=== PATIENT | female | born 1970 | race African-American/Black ===

== ENCOUNTER 2019-01-22 16:34 | Emergency (ER) | payer OTHER ==
--- NOTE | 2019-01-22 17:47 | ER ---
Nurse's Notes [facility] Name: Hollie Chen Age: 48 yrs Sex: Female : 1970 Arrival Date: 01/22/2019 Time: 16:38 Bed 19 Private MD: Diagnosis: Pain in thoracic spine-resolved Presentation: 01/22 16:48 Presenting complaint: Patient states: my last pt of the day and i was getting him over tw2 to the bed and i twisted and it pulled something in my back, RIGHT mid back, it is fading a way. Transition of care: patient was not received from another setting of care. Onset of symptoms was January 22, 2019. Risk Assessment: Do you want to hurt yourself or someone else? Patient reports no desire to harm self or others. Initial Sepsis Screen: Does the patient meet any 2 criteria? No. Patient's initial sepsis screen is negative. Does the patient have a suspected source of infection? No. Patient's initial sepsis screen is negative. Care prior to arrival: None. 16:48 Method Of Arrival: Ambulatory tw2 16:48 Acuity: DIONNA 4 tw2 Triage Assessment: 16:50 General: Appears in no apparent distress. Behavior is calm, cooperative, appropriate tw2 for age. Pain: Complains of pain in right mid back and right low back. Musculoskeletal: Range of motion: intact in all extremities. 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 - Social history:: Smoking status: . - Ebola Screening: : Patient denies travel to an Ebola-affected area in the 21 days before illness onset. Screenin:04 Abuse screen: Denies threats or abuse. Denies injuries from another. Nutritional hj screening: No deficits noted. Tuberculosis screening: No symptoms or risk factors identified. Fall Risk None identified. Assessment: 17:03 General: Appears in no apparent distress. uncomfortable, Behavior is calm, cooperative, hj appropriate for age. Pain: Complains of pain in right low back and right mid back. Neuro: Level of Consciousness is awake, alert, obeys commands, Oriented to person, place, time, situation, Appropriate for age. Cardiovascular: Capillary refill < 3 seconds Patient's skin is warm and dry. Respiratory: Airway is patent Respiratory effort is even, unlabored, Respiratory pattern is regular, symmetrical. GI: No signs and/or symptoms were reported involving the gastrointestinal system. : No signs and/or symptoms were reported regarding the genitourinary system. EENT: No signs and/or symptoms were reported regarding the EENT system. Derm: No signs and/or symptoms reported regarding the dermatologic system. Musculoskeletal: Reports pain in right low back and right mid back. 17:52 Reassessment: D/C instructions given;. hj Vital Signs: 16:50 BP 124 / 71; Pulse 81; Resp 17; Temp 97.4(TE); Pulse Ox 100% on R/A; Weight 86.18 kg tw2 (R); Height 5 ft. 10 in. (177.80 cm); Pain 0/10; 17:51 BP 122 / 70; Pulse 80; Resp 18; Pulse Ox 100% on R/A; hj 16:50 Body Mass Index 27.26 (86.18 kg, 177.80 cm) tw2 ED Course: 16:38 Patient arrived in ED. mr 16:49 Triage completed. tw2 16:50 Arm band placed on. tw2 16:54 Wesley Weinstein, RN is Primary Nurse. hj 17:04 Patient has correct armband on for positive identification. Bed in low position. Call hj light in reach. Side rails up X 1. Adult w/ patient. 17:25 [facility] kb 17:25 Roberth Singh MD is Attending Physician. kb 17:51 No provider procedures requiring assistance completed. Patient did not have IV access hj during this emergency room visit. Administered Medications: No medications were administered Outcome: 17:47 Discharge ordered by . kb 17:51 Discharged to home ambulatory. hj 17:51 Condition: stable 17:51 Discharge instructions given to patient, Instructed on discharge instructions, follow up and referral plans. medication usage, Demonstrated understanding of instructions, follow-up care, medications, Prescriptions given X 2. 17:52 Patient left the ED. Signatures: Nicole Alvarenga FNP-C FNP-Ckb Rivera, Mary mr Weinstein, Wesley, RN RN hj CabralTami, RN RN tw2
--- NOTE | 2019-01-22 17:48 | EDPHYS ---
Physician Documentation [facility] Name: Hollie Chen Age: 48 yrs Sex: Female : 1970 Arrival Date: 01/22/2019 Time: 16:38 Bed 19 Private MD: ED Physician Roberth Singh HPI: 01/22 21:01 This 48 yrs old Black Female presents to ER via Ambulatory with complaints of Back Pain.kb 21:01 The patient presents with pain that is acute. The symptoms are located in the lumbar kb area and right mid back. Onset: The symptoms/episode began/occurred just prior to arrival. The pain does not radiate. Associated signs and symptoms: The patient has no apparent associated signs or symptoms. The problem was sustained when lifting from twisting. Modifying factors: The patient symptoms are alleviated by nothing, the patient symptoms are aggravated by nothing. Severity of symptoms: At their worst the symptoms were mild, moderate, in the emergency department the symptoms have resolved. The patient has not experienced similar symptoms in the past. The patient has not recently seen a physician. Pt reports she was lifting a pt, twisted and felt like she pinched something in her back. States she sat down and rested afterwards and the pain subsided. Denies any pain at this time. . 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 - Social history:: Smoking status: . - Ebola Screening: : Patient denies travel to an Ebola-affected area in the 21 days before illness onset. ROS: 20:25 Constitutional: Negative for fever, chills, and weight loss, Cardiovascular: Negative kb for chest pain, palpitations, and edema, Respiratory: Negative for shortness of breath, cough, wheezing, and pleuritic chest pain, Abdomen/GI: Negative for abdominal pain, nausea, vomiting, diarrhea, and constipation, : Negative for injury, bleeding, discharge, and swelling, MS/Extremity: Negative for injury and deformity, Skin: Negative for injury, rash, and discoloration, Neuro: Negative for headache, weakness, numbness, tingling, and seizure. 20:25 Back: Positive for pain at rest, pain with movement, of the lumbar area. Exam: 21:00 Constitutional: This is a well developed, well nourished patient who is awake, alert, kb and in no acute distress. Head/Face: Normocephalic, atraumatic. ENT: Nares patent. No nasal discharge, no septal abnormalities noted. Tympanic membranes are normal and external auditory canals are clear. Oropharynx with no redness, swelling, or masses, exudates, or evidence of obstruction, uvula midline. Mucous membranes moist. Neck: Trachea midline, no thyromegaly or masses palpated, and no cervical lymphadenopathy. Supple, full range of motion without nuchal rigidity, or vertebral point tenderness. No Meningismus. Chest/axilla: Normal chest wall appearance and motion. Nontender with no deformity. No lesions are appreciated. Cardiovascular: Regular rate and rhythm with a normal S1 and S2. No gallops, murmurs, or rubs. Normal PMI, no JVD. No pulse deficits. Respiratory: Lungs have equal breath sounds bilaterally, clear to auscultation and percussion. No rales, rhonchi or wheezes noted. No increased work of breathing, no retractions or nasal flaring. Abdomen/GI: Soft, non-tender, with normal bowel sounds. No distension or tympany. No guarding or rebound. No evidence of tenderness throughout. Back: No spinal tenderness. No costovertebral tenderness. Full range of motion. Skin: Warm, dry with normal turgor. Normal color with no rashes, no lesions, and no evidence of cellulitis. MS/ Extremity: Pulses equal, no cyanosis. Neurovascular intact. Full, normal range of motion. Neuro: Awake and alert, GCS 15, oriented to person, place, time, and situation. Cranial nerves II-XII grossly intact. Motor strength 5/5 in all extremities. Sensory grossly intact. Cerebellar exam normal. Normal gait. 21:03 Neuro: Exam negative for kb Vital Signs: 16:50 BP 124 / 71; Pulse 81; Resp 17; Temp 97.4(TE); Pulse Ox 100% on R/A; Weight 86.18 kg tw2 (R); Height 5 ft. 10 in. (177.80 cm); Pain 0/10; 17:51 BP 122 / 70; Pulse 80; Resp 18; Pulse Ox 100% on R/A; hj 16:50 Body Mass Index 27.26 (86.18 kg, 177.80 cm) tw2 MDM: 17:26 Patient medically screened. kb 17:49 Data reviewed: vital signs, nurses notes. Data interpreted: Pulse oximetry: on room air kb is 100 %. Interpretation: normal. Counseling: I had a detailed discussion with the patient and/or guardian regarding: the historical points, exam findings, and any diagnostic results supporting the discharge/admit diagnosis, the need for outpatient follow up, a family practitioner, to return to the emergency department if symptoms worsen or persist or if there are any questions or concerns that arise at home. Administered Medications: No medications were administered Disposition: 01/23 07:47 Co-signature as Attending Physician, Roberth Singh MD I agree with the assessment and robert plan of care. Disposition: 01/22/19 17:47 Discharged to Home. Impression: Pain in thoracic spine - resolved. - Condition is Stable. - Discharge Instructions: Back Pain, Adult, [id number]. - Prescriptions for Cyclobenzaprine 10 mg Oral Tablet - take 1 tablet by ORAL route every 8 hours As needed; 21 tablet. Diclofenac Sodium 75 mg Oral Tablet, Delayed Release (E.C.) - take 1 tablet by ORAL route 2 times per day As needed; 30 tablet. - Medication Reconciliation Form, Thank You Letter, Antibiotic Education, Prescription Opioid Use, Work release form form. - Follow up: Emergency Department; When: As needed; Reason: Worsening of condition. Follow up: Private Physician; When: 2 - 3 days; Reason: Recheck today's complaints, Continuance of care, Re-evaluation by your physician. Signatures: Nicole Alvarenga, SULAIMAN-C SULAIMAN-Roberth Plata MD MD cha Joaquin, Henry, RN RN hj Wise, Tara, RN RN tw2 Corrections: (The following items were deleted from the chart) 01/22 17:52 17:47 01/22/2019 17:47 Discharged to Home. Impression: Pain in thoracic spine - hj resolved. Condition is Stable. Forms are Work release form, Medication Reconciliation Form, Thank You Letter, Antibiotic Education, Prescription Opioid Use. Follow up: Emergency Department; When: As needed; Reason: Worsening of condition. Follow up: Private Physician; When: 2 - 3 days; Reason: Recheck today's complaints, Continuance of care, Re-evaluation by your physician. kb
== END 2019-01-22 17:52 | disposition home or self-care (01) ==
LOC: ER 16:34
DX: M54.5 Low back pain (principal); Z88.0 Allergy status to penicillin
CPT/HCPCS: 99282